=== PATIENT | female | born 1955 | race Caucasian/White ===

== ENCOUNTER 2019-11-24 15:47 | Outpatient (CLI) | payer MEDICARE, SELFPAY ==
--- NOTE | 2019-11-24 15:58 | XR_ITS ---
WS: [id number] SCREENING DEXA SCAN [facility] CLINICAL INFORMATION: ASYMTOMATIC MENOPAUAL COMPARISON: None. FINDINGS: Left forearm bone mineral density 0.85 with a T score of -0.3 and Z score of 1.1 Left femoral neck bone mineral density measures 0.949 g/cm2. This corresponds to a T score of -0.5 an d Z score of 0.3. Right femoral neck bone mineral density measures 0.915 g/cm2. This corresponds to a T score -0.7of an d Z score of 0.0. Mean femoral neck bone mineral density measures 0.932 g/cm2. This corresponds to a T score of -0.6 an d Z score of 0.2. XR/XR DEXA axial skeleton* [id number] IMPRESSION: Normal bone mineralization. Patient's FRAX calculated 10 year probability for major osteoporotic fracture i s 16.1 % and osteoporotic hip fracture is 2.2%.
== END 2019-11-24 15:48 | disposition home or self-care (01) ==
PROVIDERS: Family Provider Family Medicine; Visit Provider Family Medicine
DX: Z78.0 Asymptomatic menopausal state (principal)
CPT/HCPCS: 77080

== ENCOUNTER → 2020-03-16 08:34 | Outpatient (BNVA) | payer MEDICARE, SELFPAY | PROVIDERS: Family Provider Family Medicine; Referring Provider Family Medicine; Visit Provider Anesthesiology Pain Medicine | DX: M54.42 Lumbago with sciatica, left side (principal); M47.816 Spondylosis without myelopathy or radiculopathy, lumbar region; M54.16 Radiculopathy, lumbar region; M54.9 Dorsalgia, unspecified; M62.830 Muscle spasm of back; Z98.890 Other specified postprocedural states; Z79.891 Long term (current) use of opiate analgesic | CPT/HCPCS: 99204 ==

== ENCOUNTER → 2020-03-27 14:25 | Outpatient (BNVA) | payer MEDICARE, SELFPAY | PROVIDERS: Family Provider Family Medicine; Visit Provider Anesthesiology Pain Medicine | DX: M54.16 Radiculopathy, lumbar region (principal); M54.9 Dorsalgia, unspecified | CPT/HCPCS: 64483; 64484; J1040; J2001; J3490 ==

== ENCOUNTER → 2020-04-13 13:14 | Outpatient (BNVA) | payer MEDICARE, SELFPAY | PROVIDERS: Family Provider Family Medicine; Visit Provider Anesthesiology Pain Medicine | DX: M54.16 Radiculopathy, lumbar region (principal); M54.9 Dorsalgia, unspecified | CPT/HCPCS: 64483; 64484; J1040; J3490 ==

== ENCOUNTER → 2020-04-27 08:48 | Outpatient (BNVA) | payer MEDICARE, SELFPAY | PROVIDERS: Family Provider Family Medicine; PCP Family Medicine; Visit Provider Anesthesiology Pain Medicine | DX: M47.816 Spondylosis without myelopathy or radiculopathy, lumbar region (principal); M54.16 Radiculopathy, lumbar region; M54.9 Dorsalgia, unspecified; M79.18 Myalgia, other site; Z98.890 Other specified postprocedural states | CPT/HCPCS: 20553; 99213; J1030; J3490 ==

== ENCOUNTER → 2020-05-25 09:17 | Outpatient (BNVA) | payer MEDICARE, SELFPAY | PROVIDERS: Family Provider Family Medicine; PCP Family Medicine; Visit Provider Anesthesiology Pain Medicine | DX: M47.816 Spondylosis without myelopathy or radiculopathy, lumbar region (principal); M54.16 Radiculopathy, lumbar region; M54.9 Dorsalgia, unspecified; M62.830 Muscle spasm of back; Z98.890 Other specified postprocedural states | CPT/HCPCS: 99213 ==

== ENCOUNTER → 2020-06-22 13:01 | Outpatient (BNVA) | payer MEDICARE, SELFPAY | PROVIDERS: Family Provider Family Medicine; PCP Family Medicine; Visit Provider Anesthesiology Pain Medicine | DX: M54.42 Lumbago with sciatica, left side (principal); M47.816 Spondylosis without myelopathy or radiculopathy, lumbar region; M54.16 Radiculopathy, lumbar region; M54.9 Dorsalgia, unspecified; M62.830 Muscle spasm of back; Z98.890 Other specified postprocedural states; Z79.891 Long term (current) use of opiate analgesic | CPT/HCPCS: 99213; 99214 ==

== ENCOUNTER 2020-07-19 15:08 | Outpatient (CLI) | payer MEDICARE, SELFPAY ==
--- NOTE | 2020-07-19 15:16 | MR_ITS ---
WS: [id number] MRI LUMBAR SPINE WITH AND WITHOUT CONTRAST HISTORY: increased radicular pain. Previous lumbar surgery COMPARISON: 11/07/2016 TECHNIQUE: Sagittal and axial multisequence imaging is submitted. Sagittal and axial T1 fat sat seque nces post-ProHance 17 cc IV. Disc and facet and osteoarthritis in the cervical spine causing encroachment upon the thecal sac from C3-4 through C6-7. LEFT paracentral disc protrusion at T4-5. Additional left-sided disc protrusion a t T6-7 and T7-8. Mild RIGHT convex curvature of the lumbar spine. L3 anterolisthesis by 3.2 mm. Posterior lumbar fusio n extends from L3 to L4. Mild disc desiccation throughout the lumbar spine. Conus terminates normally at L1-2 disc level. L1-L2: Normal. L2-L3: Mild annular disc bulging with a central broad-based shallow disc protrusion which is new sinc e the prior study. Disc protrusion extends into the inferior LEFT lateral recess slightly. There is m ild disc contact on the L2 and L3 nerve roots. Moderate LEFT foraminal stenosis. Mild central stenosi s is new. These findings are new. L3-L4: Large posterior laminectomy defect. No significant compression or disc protrusion on the theca l sac. Nerve roots are becoming slightly clumped within the thecal sac. L4-L5: Large posterior laminectomy defects with mild clumping of the nerve roots. Very mild encroachm ent upon the inferior lateral recesses by facet disease. Moderate bilateral foraminal narrowing. L5-S1: Diffuse osteophytic ridging and annular disc bulging. No central stenosis. Broad-based disc bu lging is encroaching upon the inferior lateral recess and the S1 nerve roots bilaterally. More focal RIGHT foraminal disc protrusion also abuts the RIGHT L5 nerve root. Similar findings to the prior benjamín dy. Moderate bilateral foraminal stenosis at L4-5 is unchanged. No evidence for discitis or osteomyelitis. MR/MR lumbar spine wo/w con [id number] IMPRESSION: 1. Status post L3-L5 posterior lumbar fusion with large laminectomy defects at L3-4 and L4-5. Resolution of the previously described central stenosis at L3-4 and L4-5. 2. New shallow disc protrusion at L2-3 with extension into the inferior LEFT l ateral recess with mild contact on the L2 and L3 nerve roots. Moderate LEFT for aminal stenosis due to combination of disc and facet disease at L2-3. 3. New mild central stenosis at L2-3 with progression of facet disease and flu id in the facet joints. 4. Moderate RIGHT foraminal stenosis at L5-S1 is unchanged. 5. There are additional multiple thoracic disc protrusions seen on the localiz er. If patient is symptomatic consider follow-up thoracic spine MRI to evaluate the disc protrusions.
[2020-07-19 16:14] LABS: Blood Urea Nitrogen 14 mg/dL (8-23)
== END 2020-07-19 15:09 | disposition home or self-care (01) ==
LOC: RADSHAW 15:13
PROVIDERS: PCP Family Medicine; Visit Provider Anesthesiology Pain Medicine
DX: M54.16 Radiculopathy, lumbar region (principal); Z98.890 Other specified postprocedural states; M96.1 Postlaminectomy syndrome, not elsewhere classified; M51.26 Other intervertebral disc displacement, lumbar region; M48.07 Spinal stenosis, lumbosacral region; M51.24 Other intervertebral disc displacement, thoracic region
CPT/HCPCS: 72158; 82565; 84520; A9579

== ENCOUNTER → 2020-07-20 10:49 | Outpatient (BNVA) | payer MEDICARE, SELFPAY | PROVIDERS: Family Provider Family Medicine; PCP Family Medicine; Visit Provider Anesthesiology Pain Medicine | DX: M47.816 Spondylosis without myelopathy or radiculopathy, lumbar region (principal); M54.16 Radiculopathy, lumbar region; M54.9 Dorsalgia, unspecified; M62.830 Muscle spasm of back; M79.605 Pain in left leg; G03.9 Meningitis, unspecified; Z98.890 Other specified postprocedural states; Z79.891 Long term (current) use of opiate analgesic | CPT/HCPCS: 99214; 99215 ==

== ENCOUNTER → 2020-07-24 13:39 | Outpatient (BNVA) | payer MEDICARE, SELFPAY | PROVIDERS: Family Provider Family Medicine; PCP Family Medicine; Visit Provider Anesthesiology Pain Medicine | DX: M54.16 Radiculopathy, lumbar region (principal); M54.9 Dorsalgia, unspecified; Z79.891 Long term (current) use of opiate analgesic | CPT/HCPCS: 64483; J1100; J3490 ==

== ENCOUNTER → 2020-08-07 09:30 | Outpatient (BNVA) | payer MEDICARE, SELFPAY | PROVIDERS: Family Provider Family Medicine; PCP Family Medicine; Visit Provider Anesthesiology Pain Medicine | DX: M54.16 Radiculopathy, lumbar region (principal); M47.816 Spondylosis without myelopathy or radiculopathy, lumbar region; M54.9 Dorsalgia, unspecified; M62.830 Muscle spasm of back; G03.9 Meningitis, unspecified; Z98.890 Other specified postprocedural states; Z79.891 Long term (current) use of opiate analgesic | CPT/HCPCS: 99213 ==

== ENCOUNTER → 2020-09-04 09:42 | Outpatient (BNVA) | payer MEDICARE, SELFPAY | PROVIDERS: Family Provider Family Medicine; PCP Family Medicine; Visit Provider Anesthesiology Pain Medicine | DX: M54.42 Lumbago with sciatica, left side (principal); M54.16 Radiculopathy, lumbar region; M47.816 Spondylosis without myelopathy or radiculopathy, lumbar region; M48.062 Spinal stenosis, lumbar region with neurogenic claudication; M54.9 Dorsalgia, unspecified; M62.830 Muscle spasm of back; G03.9 Meningitis, unspecified; Z98.890 Other specified postprocedural states; Z79.891 Long term (current) use of opiate analgesic | CPT/HCPCS: 99214 ==

== ENCOUNTER → 2020-10-12 10:42 | Outpatient (BNVA) | payer MEDICARE, SELFPAY | PROVIDERS: Family Provider Family Medicine; PCP Family Medicine; Visit Provider Orthopaedic Surgery | DX: M54.16 Radiculopathy, lumbar region (principal); Z98.1 Arthrodesis status | CPT/HCPCS: 72114 ==

== ENCOUNTER 2020-11-14 15:07 | Inpatient (IN) | payer MEDICARE, SELFPAY ==
[2020-11-08 10:48] VITALS: BMI 29.9
--- NOTE | 2020-11-08 11:13 | P.ANESASSM_ITS ---
Pre-Anesthetic Assessment Pre-Anesthetic Assessment: Height/Weight: Height 1.65 m Weight 81.647 kg Preop Diagnosis: back pain Proposed Procedure: Operation Date: 11/14/20 07:00 Proposed Procedures p T10 ? Pelvis PSF with instability L2/3 PLIF and L5/S1 PLIF 73176, 93124, 16281, 59994, 53030, 82200, 57883,80048, 17949, 78622, 74469, 32925, 49338 (x7) M48.061(Not Applicable) - Leno Rasheed DO Familial anesthetic complications: None Social: Social History: No alcohol and No tobacco Exam: Pre-Anes Outpt Exam: alert, oriented x 3, clear to auscultation bilaterally and regular rate & rhythm Airway: Cervical ROM: WNL MP: 4 Dentition: Full Additional comments: small mouth opening, large neck circumference Pulmonary: Pulmonary: Asthma (has inhaler - not used in 8 or 9 months) Musc/skel: Musc/skel: Lower Back Pain Anesthetic Plan: ASA status: 2 Anesthesia: General Risk of > 500 ml blood loss (7ml/kg in children): No PFSH Anesthesia PFSH: Medical History (Updated 10/12/20 @ 11:14 by Leno Rasheed DO) 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
[2020-11-08 11:33] LABS: Hematocrit 45.4 % (37.0-47.0); Hemoglobin 14.9 g/dL (11.5-15.3); Mean Corpuscular HGB Conc 32.8 g/dL (30.0-36.0); Mean Corpuscular Hemoglobin 28.9 pg (28.0-34.0); Mean Corpuscular Volume 88.2 fL (81-99); Mean Platelet Volume 9.3 fL (7.4-10.4); Platelet Count 285 10^3/cmm (130-400); Red Blood Count 5.15 10^6/uL (4.1-5.3); Red Cell Distribution Width 12.3 % (12.1-15.1); White Blood Count 9.5 10^3/uL (4.0-10.0)
[2020-11-08 11:48] LABS: Anion Gap 10.7 (5-19); Blood Urea Nitrogen 12 mg/dL (8-23); Carbon Dioxide 33 mmol/L (22-29); Chloride 100 mmol/L (98-107); Glomerular Filtration Rate 123.4 mL/min (90-130); Glucose 87 mg/dL (65-115); Osmolality Calculated 289 mOsm/kg (285-295); Potassium 3.7 mmol/L (3.5-5.1); Sodium 140 mmol/L (136-145)
[2020-11-08 11:50] LABS: Absolute Eosinophils 0.2 10^3/cmm (0.0-0.7); Absolute Neutrophil 6.4 10^3/cmm (1.4-6.5); Absolute Segmented Neutrophil 6.4 10/cmm (1.6-7.1); Eosinophils 3 %; Lymphocytes 24 %; Monocytes Absolute 0.6 10^3/cmm (0.1-0.6); Platelet Estimate Normal (Normal); Segmented Neutrophils 67 %; Total Cells Counted 100 (0-100)
[2020-11-14] VITALS (34 sets, daily range): BP systolic 76–156; BP diastolic 52–86; PULSE 71–106; RESP 14–24; TEMP 35.9–37.3; O2SAT 95–100
--- NOTE | 2020-11-14 | SCC_ITS ---
Procedure Done: 1. T10 - S1 - Pelvis Instrumentation 2. T10 - S1 -Pelvis fusion 3. L5/S1 Interbody fusion with postrolateral fusion 4. L5/S1 interbody cage 5. L2/3 Interbody fusion with posterolateral fusion 6. L2/3 interbody cage 7. bone marrow aspirate through separate incision of the fascia from the right iliac crest 8. use of allograft 9. use of autograft 10. Removal of deep hardware from the spine 35 seconds of fluoroscopic guidance, for a cumulative dose of 137.9 mGy, was provided to Dr. Rasheed by the radiology department. C-arm images of the lumbar spine were saved for the patient's permanent record. [facility]
--- NOTE | 2020-11-14 06:42 | W.PM.OPSUD ---
Surgery/Procedure H&P Update DATE OF PROCEDURE: November 14, 2020 DATE H&P PERFORMED: 11/14/20 H&P UPDATE INFORMATION: I have reviewed H&P completed within last 30 days, I have examined patient prior to procedure and No changes to prior documentation PREOP DIAGNOSIS: Lumbar stenosis , degenerative scoliosis PLANNED PROCEDURE: Operation Date: 11/14/20 07:30 Proposed Procedures p T10 ? Pelvis PSF with instability L2/3 PLIF and L5/S1 PLIF 49144, 10671, 50692, 55571, 71923, 46072, 05636,73101, 55435, 53771, 08003, 27013, 14726 (x7) M48.061(Not Applicable) - Leno Rasheed, DO
--- NOTE | 2020-11-14 06:43 | P.HP_ITS ---
Providers/Chief Complaint Primary Care Provider: Jan Haro Chief Complaint: T10 ? Pelvis PSF with instability L2/3 PLIF and L5 History of Present Illness Meghan Maldonado is a 65 year old female Details: New 65 year old female here for evaluation of back pain. Chief Complaint: low back pain Onset: 2018 Duration: years Characteristics:sharp stabbing Severity: 10 Location: left side low back pain Radiating symptoms:back left lower extremity from hip to knee Aggravating factors: anything Alleviating factors: rest Neuro deficits: denies numbness, tingling, weakness, incontinence of bowel/bladder, saddle anesthesia. Prior tx: laminectomy done [address] Akhtar in [place], injections done by Dr. Matute lasting one week. Review of Systems ENMT: Denies: enlarged tonsils Medications/Allergies Home Medications Medication Instructions Recorded Confirmed Last Taken Type hydrochlorothiazide 25 mg tablet 25 mg PO DAILY 03/16/20 11/14/20 11/14/20 05:00 History ibuprofen 200 mg capsule 200 mg PO Q6H PRN 03/16/20 11/08/20 Unknown History losartan 25 mg tablet 25 mg PO DAILY 03/16/20 11/14/20 11/14/20 05:00 History naproxen sodium 220 mg capsule 220 mg PO Q8H PRN 07/20/20 11/08/20 Unknown History baclofen 10 mg tablet 10 mg PO BID #60 tab 09/04/20 11/14/20 1 Day Ago Rx ~11/13/20 gabapentin 300 mg capsule 300 mg PO TID #90 cap 09/04/20 11/14/20 11/14/20 05:00 Rx Allergies Allergy/AdvReac Type Severity Reaction Status Date / Time amlodipine Allergy Unknown Verified 11/08/20 10:46 hydrocodone Allergy ADR-Itching Verified 11/08/20 10:46 PFSH Acute PFSH: Medical History (Updated 10/12/20 @ 11:14 by Leno Rasheed DO) 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 contract 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 Surgical History (Updated 10/12/20 @ 11:14 by Leno Rasheed DO) H/O arthroscopic knee surgery History of back surgery History of lumpectomy of right breast Family History Other CAD (coronary artery disease) Cancer Diabetes Social History Smoking and tobacco status: never smoked Alcohol intake: current Alcohol intake frequency: few times a month Alcohol type: wine Lives independently: Yes History of recent travel: No (RONALD) Additional social history: TRAVELED TO [place] 3 MONTHS AGO Vitals/I&O/Wt Last Vital Signs Temp 96.7 F L 11/14/20 06:12 Pulse 71 11/14/20 06:12 Resp 18 11/14/20 06:12 BP 156/86 11/14/20 06:12 Pulse Ox 96 11/14/20 06:12 Physical Exam Narrative: EXAM NARRATIVE: EXAM NARRATIVE: CONSTITUTIONAL: The patient is normal appearing, well groomed, cooperative and in no apparent distress. GENERAL: Patient in no acute distress. Well nourished. CARDIAC: Regular rate and rhythm. CHEST: Normal inspiratory effort, normal respiratory rate. ABDOMEN: Soft and non-tender. SKIN: Clear, warm and intact. NEURO?PSYCH: The patient is alert and oriented to person, place and time. NEUROVASCULAR: Upper Extremity Sensory - SILT. Motor Strength: Shoulder abduction C5: 5/5; Wrist extension C6: 5/5; Elbow extension C7: 5/5; Hand Film Processing Supervisor C8: 5/5; Finger abduction T1: 5/5. Radial/ Ulnar/ Median in intact Lower Extremity Sensory - SILT. Motor Strength: Hip flexion L2/3; Ant/inner thig h: 5/5; Hip adduction L2/3: 5/5; Knee extension L4 Lat thigh: 5/5; Toe dorsiflexion L5: 5/5; Ankle dorsiflexion L5/ S1: 5/5; Plantar flexion S1: 5/5. DTR: Triceps 2+; Brachioradialis 2+; Patellar 2+; Achilles 2+. MUSCULOSKELETAL: UPPER EXTREMITIES: The patient had full active ROM in fingers, wrist, elbow, and shoulder. The patient demonstrated ability to fully flex/extend/abduct/adduct fingers, make ok sign, cross 2nd/3rd digits, extend 1st digit fully.. Radial pulse 2+, CR<2 seconds. LOWER EXTREMITIES: Pt has full, active ROM of toes, ankle, knee, and hip. Dorsalis pedis & posterior tibialis pulses 2+, CR<2 seconds. SPINE: Skin warm, dry, intact. 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
--- NOTE | 2020-11-14 06:45 | P.ANESUD_ITS ---
Pre-Anesthetic Update Pre-Anesthetic Assessment: Date of Surgery/Procedure: 11/14/20 Preop Peyton gnosis: Lumbar stenosis , degenerative scoliosis Proposed Procedure: Operation Date: 11/14/20 07:30 Proposed Procedures p T10 ? Pelvis PSF with instability L2/3 PLIF and L5/S1 PLIF 22404, 81437, 14167, 23960, 32049, 08900, 66188,68471, 99295, 46535, 36219, 00301, 89854 (x7) M48.061(Not Applicable) - Leno Rasheed, DO Any changes to Pre-Anesthetic Assessment?: No Last Intake: Intake Last Liquid Date 11/13/20 Last Liquid Time 20:00 Last Solid Date 11/13/20 Last Solid Time 20:00 Vitals: Temperature 96.7 F L 11/14/20 06:12 Temperature Source Temporal Artery S can 11/14/20 06:12 Pulse Rate 71 11/14/20 06:12 Pulse Rhythm 11/14/20 06:31 Pulse Strength 3+ Normal 11/14/20 06:31 Respiratory Rate 18 11/14/20 06:12 Blood Pressure 156/86 11/14/20 06:12 Blood Pressure Meagan n 109 11/14/20 06:12 Pulse Oximetry 96 11/14/20 06:12 Oxygen Delivery Me thod 11/14/20 06:31 Exam: Pre-Anes Outpt Exam: alert, oriented x 3, clear to auscultation bilaterally and regular rate & rhythm Other Pertinent Information: Other Pertinent Information: Warmer, A.line Cardiac Studies: No Data to Display
[2020-11-14] MEDS: sodium chloride 0.9% 1,000 ML 30 ML IV (06:47)
[2020-11-14 07:00] LABS: Basophils # 0.1 10^3/uL (0.0-0.1); Basophils % 1.3 %; Eosinophils # 0.2 10^3/uL (0.0-0.8); Eosinophils % 3.6 %; Hematocrit 41.9 % (37.0-47.0); Hemoglobin 13.9 g/dL (11.5-15.3); Lymphocytes # 1.8 10^3/uL (0.8-4.8); Lymphocytes % 28.8 %; Mean Corpuscular HGB Conc 33.2 g/dL (30.0-36.0); Mean Corpuscular Hemoglobin 29.3 pg (28.0-34.0); Mean Corpuscular Volume 88.2 fL (81-99); Mean Platelet Volume 9.4 fL (7.4-10.4); Monocytes # 0.7 10^3/uL (0.2-0.9); Monocytes % 11.7 %; Neutrophils # 3.31 10^3/uL (1.8-7.7); Neutrophils % 53.9 %; Nucleated Red Blood Cells % 0 %; Platelet Count 267 10^3/cmm (130-400); Red Blood Count 4.75 10^6/uL (4.1-5.3); Red Cell Distribution Width 12.2 % (12.1-15.1); White Blood Count 6.1 10^3/uL (4.0-10.0)
[2020-11-14 07:16] LABS: Alanine Aminotransferase 15 U/L (0-33); Albumin Level 3.8 g/dL (3.5-5.2); Alkaline Phosphatase 96 IU/L (35-105); Anion Gap 10.5 (5-19); Aspartate Amino Transferase 17 U/L (0-32); Blood Urea Nitrogen 11 mg/dL (8-23); Calcium 9.7 mg/dL (8.5-10.5); Carbon Dioxide 29 mmol/L (22-29); Chloride 101 mmol/L (98-107); Globulin 2.9 g/dL (1.3-4.6); Glomerular Filtration Rate 123.4 mL/min (90-130); Glucose 95 mg/dL (65-115); Osmolality Calculated 283 mOsm/kg (285-295); Potassium 3.5 mmol/L (3.5-5.1); Sodium 137 mmol/L (136-145); Total Bilirubin 0.6 mg/dL (0.15-1.2); Total Protein 6.7 g/dL (6.6-8.7)
--- NOTE | 2020-11-14 09:18 | ANES.PROC ---
Anesthesia Procedures Procedure/Date: 11/14/20 Arterial Line: Time Out Performed: Yes Consent: requested by attending/covering physician, from patient, risks and benefits reviewed and patient agrees to proceed Size (Gauge): 20 Technique Used: guide wire technique Post-Procedure: dry sterile dressing placed Patient Tolerated Procedure: well Complications: none Site: right and radial
[2020-11-14] MEDS: vancomycin 1,000 MG SDV 1000 MG XX (10:04)
[2020-11-14] MEDS: heparin, porcine 1,000 unit/mL INJ 10 mL 10000 UNIT IRRIGATION (10:05)
--- NOTE | 2020-11-14 11:27 | SUR.OPER ---
Family Notified Of Patient's Status Via Phone.
[2020-11-14 13:43] LABS: ABG PCO2 35.5 mmHg (35-45); ABG PH Result 7.44 (7.35-7.45); Arterial Blood Gas Hematocrit 28.1 % (37-47); Base Excess ABG -0.2 mmol/L (-2.0-2.0); Blood Gas Sample Site Brachial, right; Blood Gas Sample Type Arterial; Carboxyhemoglobin 0.9 %THgb (0.4-20.1); HCO3 ABG 23.8 mmol/L (22-26); Ionized Calcium Level - ABG 1.1 mmol/L (1.1-1.4); Methemoglobin 1.1 % (0.4-1.5); Oxygen Saturation ABG > 100.0; Potassium Level - ABG 3.1 mmol/L (3.5-5.0); Total Hemoglobin 9.2 g/dL (12-16)
[2020-11-14 13:46] LABS: Alveolar-Arterial Oxygen Gradi 5.5 mmHg (5-10); Oxygen Device BIPAP
--- NOTE | 2020-11-14 15:18 | PM.OP ---
Operative Report Date of procedure: November 14, 2020 Pre-op Diagnosis: Lumbar stenosis , degenerative scoliosis Post-op diagnosis: same Procedure Done: 1. T10 - S1 - Pelvis Instrumentation 2. T10 - S1 -Pelvis fusion 3. L5/S1 Interbody fusion with postrolateral fusion 4. L5/S1 interbody cage 5. L2/3 Interbody fusion with posterolateral fusion 6. L2/3 interbody cage 7. bone marrow aspirate through separate incision of the fascia from the right iliac crest 8. use of allograft 9. use of autograft 10. Removal of deep hardware from the spine Surgeon: Leno Rasheed Anesthesia: General Estimated blood loss (mL): 1,100 Condition: stable Disposition: PACU Procedure: 1. T10 - S1 - Pelvis Instrumentation 2. T10 - S1 -Pelvis fusion (Lumbopelvic fixation) 3. L5/S1 Interbody fusion with postrolateral fusion 4. L5/S1 interbody cage 5. L2/3 Interbody fusion with posterolateral fusion 6. L2/3 interbody cage 7. bone marrow aspirate through separate incision of the fascia from the right iliac crest 8. use of allograft 9. use of autograft 10. Removal of deep hardware from the spine Patient is brought to the operative suite. After undergoing anesthesia, the patient had neuro monitoring attached. Patient was then placed in the prone position on the Willie table. All areas of impingement were well-padded. Patient was then prepped and draped in the normal sterile fashion. Skin incision was then made over the T10 - S2 level. Subperiosteal dissection was made out to the transverse processes of T10 - S1 out over the sacral ala. Once the exposure was complete attention was then brought to removing the previous pedicle screws. Patient's previous hardware was identified it was placed from L3-L5. The screws were exposed completely and the end caps were removed from the pedicle screws. And then the cross-link screws were removed. The cross-link was removed. The rods were removed bilaterally. And then the pedicle screws were backed out and removed. The tissue around the pedicle screws was then removed. The screws were then replaced with [place] screws. These were six 5 x 50 pedicle screws. These were used in order to connect onto the construct that was going to be placed. Prior to placing the pedicle screws the [employer] bone marrow aspirate kit was used to aspirate bone marrow aspirate. An incision was made through the fascia of the Right iliac crest This was done by using the sharp probe to open up the bone. Aspiration was performed and then the blunt probe was then used to dissect down to through the bone tunnel. An aspirating well drawn back a millimeter approximately 20 cc of bone marrow aspirate was used. And mixed with the allograft and autograft bone that will be used. Navigation was used to place the pedicle Screws. The technique for placing the pedicle screws was to use a drill followed by the gearshift probe. Followed by the ball probe to feel the superior inferior medial lateral gonzales of the pedicles. Then placement of the screws. Was done at each pedicle. Screws were placed at T10 bilaterally and S1. Sacral Ala iliac screws were then placed. Starting point was made in the sacrum passed through the ala and then into the column in the iliac crest. This was guided with navigation. Gearshift was removed and ball probe was passed to ensure that there is no breaches. And then a 90 x 9 5 screw was inserted. This process was done on both the right and the left side of the iliac crest. Next attention was brought to performing the laminectomy of L5. This was done using the high-speed bur Kerrisons and curettes. Once the lamina was removed and then attention was brought to performing a partial facetectomy on the contralateral side. This was done again using the high-speed bur curettes and Kerrisons. The ligamentum flavum was taken down bilaterally from L5 to S1. Attention was then brought to the facet on the ipsilateral side. The facet was taken down. The S1 nerve was decompressed as it passed around the S1 pedicle. The laminectomy was done for purposes of decompressing the nerve as well as placement of the cage. The L5 nerve was identified as it traversed through the L5/S1 Foramen foramen. The thecal sac was identified and retracted. The L5/s1 disc Spacee was identified. Using a knife the disc base was opened. And then sequential sharmila were placed. The first shaver was a 6 and the last shaver was a 11. Using a pituitary and down going curette the endplates were scraped and disc material was removed from the space. Once adequate decompression of the disc base was felt to be had. Osteoamp sponge was packed into the anterior aspect of the disc base. Then a size 11 cage from [place] was placed after packing osteoamp into the cage. While placing the cage the thecal sac and S1 nerve was protected. C arm was used to ensure that the cages placed in the appropriate position. Next attention was brought to performing the laminectomy of L2. This was done using the high-speed bur Kerrisons and curettes. Once the lamina was removed and then attention was brought to performing a partial facetectomy on the contralateral side. This was done again using the high-speed bur curettes and Kerrisons. The ligamentum flavum was taken down bilaterally from L2 to L3. Attention was then brought to the facet on the ipsilateral side. The facet was taken down. The L3 nerve was decompressed as it passed around the L3 pedicle. The laminectomy was done for purposes of decompressing the nerve as well as placement of the cage. The L2 nerve was identified as it traversed through the L2/3 Foramen foramen. The thecal sac was identified and retracted. The L2/3 disc Spacee was identified. Using a knife the disc base was opened. And then sequential sharmila were placed. The first shaver was a 6 and the last shaver was a 7. Using a pituitary and down going curette the endplates were scraped and disc material was removed from the space. Once adequate decompression of the disc base was felt to be had. Osteoamp sponge was packed into the anterior aspect of the disc base. Then a size 7 cage from Ingrid was placed after packing osteoamp into the cage. While placing the cage the thecal sac and S1 nerve was protected. C arm was used to ensure that the cages placed in the appropriate position. Attention was then brought to attaching the rods to the screws placed in the [id number] bilaterally. Caps were torqued into position. Locking the construct in place. Wound was copiously irrigated and then attention was brought to decorticating the facets and transverse processes laterallyFrom T10 to the sacral ala. Bone that was taken down from the lamina was used along with osteoamp fibers and sponges were packed into the lateral gutters along the facet joints. This was done bilaterally. Wound was then closed in a layered fashion starting with the thoracolumbar fascia. 0-stratafix was used the sub cutaneous tissue was closed with 2-0 stratafix and skin with 4-0 stratafix. Glue was then used to seal the skin and a steril dressing was applied. Patient was then placed in the supine position. The endotracheal tube was removed and patient was transferred to the PACU in stable condition.
--- NOTE | 2020-11-14 15:46 | ANE.PACU2 ---
Inpatient post-anesthesia follow up: Airway intact: Yes Vital signs: Temperature 99.2 F Pulse Rate 100 Respiratory Rate 17 Blood Pressure 100/62 Pulse Oximetry 100 Oxygen Delivery Me thod Nasal Cannula Oxygen Flow Rate 3 Fraction of Inspir ed Oxygen Hydration adequate: No Nausea and vomiting: No Pain level: 3 Additional Comments: Sedated, slightly dehydrated.
[2020-11-14 15:50] LABS: Hematocrit 22.2 % (37.0-47.0); Hemoglobin 7.1 g/dL (11.5-15.3)
[2020-11-14] MEDS: fentaNYL 50 mcg/mL INJ 2mL IVP (15:54)
--- NOTE | 2020-11-14 16:04 | SUR.PHASEI ---
1505 PT TO PACU AWAKES TO VOICE BUT QUICKLY BACK TO SLEEP PT HAS SOME EDEMA TO FACE BUT IS RESOLVING PER PEDIATRIC PHYSICIAN AFTER PT POSITIONED ON BACK PT HAS ABD BINDER IN PLACE WITH FRANCISCO JAVIER DRAIN WITH RED DRAINAGE 110 ML EMPTIED, PT HAS DANIELS CATHETER TO DD WITH STATLOCK IN PLACE YELLOW URINE NOTED TO TUBING AND BAG, BILAT SCD ON, 1550 BP HOLDING AT 90 SYSTOLIC AND BETTER PT OK TO GO TO FLOOR , H&H DRAWN FROM ART LINE BY DR PERRY, AND LINE FLUSHED AND THEN PULLED BY RN PRESSURE HELD TO RT WRIST X 10 MINUTES AND PRESSURE DRESSING TO SITE. IV PATENT WITH NS AT FAST RATE PER DR YEIMI RODGERS, PT TO RECIEVE THE REST OF THE NS LITER IN PACU, PT C/O OF PAIN TO BACK AT 8 SEE PAIN MED GIVEN 1619 PT RESTING QUIETLY BP 100/81 PT RESP EVEN AND UNLABORED PT LUNGS CLEAR, PT TAKING OCC ICE CHIPS VSS FRANCISCO JAVIER COMPRESSED, DR WINTERS AT [facility] AND HAS TALKED TO PT S/O PER PHONE. NOW RN CALLING REPORT.
[2020-11-14] MEDS: sodium chloride 0.9% 1,000 ML 150 ML IV (16:05)
--- NOTE | 2020-11-14 17:11 | PC.NURSE ---
8270 OR NOTE REPORT REC'D FROM ZANA GASTELUM - PT BROUGHT TO FLOOR PER ZANA ARMSTRONG - SEE ADMISSION ASSESSMENT FOR DETAILS - ABD BINDER IN PLACE - PT ABLE TO MOVE ALL EXTERMITIES - AT SIDE
--- NOTE | 2020-11-14 17:17 | PC.NURSE ---
DR SINGH WINTERS NOTIFIED OF BLOOD PRESSURE AND HEMOGLOBIN - ORDERED TO CALL RESULTS TO DR GOODSON
--- NOTE | 2020-11-14 17:27 | PC.NURSE ---
DR KELLEE GOODSON UPDATED PER DR WINTERS REQUEST OF BP AND H&H - DR TO COME TO SEE PT
--- NOTE | 2020-11-14 17:41 | PC.NURSE ---
BLOOD PRESSURE DR GOODSON NOTIFIED OF BP OF 85/56
--- NOTE | 2020-11-14 17:50 | PC.NURSE ---
DR KELLEE GOODSON IN ROOM - DISCUSSING PLAN OF CARE WITH PT AND - AWAITING ICU BED
--- NOTE | 2020-11-14 17:52 | PC.NURSE ---
IVF BOLUS STARTED PER DR GOODSON
--- NOTE | 2020-11-14 18:10 | PM.CONSULT ---
Providers/Reason For Consult Consulting Physican/Specialty*: Internal Medicine Reason for Consult*: medical management Requesting Physcian: Dr. Rasheed Attending Physician: Leno Rasheed DO Primary Care Provider: Jan Haro History of Present Illness History of Present Illness Meghan Maldonado is a 65 year old female admitted for T10 to pelvis PSF with instability L2/3 PLIF and L5. She is status post this procedure today. She had an estimated blood loss of 1100 cc. Initially she was stable postoperatively. However she now feels poorly and blood pressure is approximately 70-80 systolic. Review of Systems General: Reports: ROS unobtainable due to medical condition Narrative: Brief review of systems prior to transfer to I see you is negative for chest pain or shortness of breath no nausea. Meds/Allergies Home Medications and Allergies Home Medications Medication Instructions Recorded Confirmed Last Taken Type hydrochlorothiazide 25 mg tablet 25 mg PO DAILY 03/16/20 11/14/20 11/14/20 05:00 History ibuprofen 200 mg capsule 200 mg PO Q6H PRN 03/16/20 11/08/20 Unknown History losartan 25 mg tablet 25 mg PO DAILY 03/16/20 11/14/20 11/14/20 05:00 History naproxen sodium 220 mg capsule 220 mg PO Q8H PRN 07/20/20 11/08/20 Unknown History baclofen 10 mg tablet 10 mg PO BID #60 tab 09/04/20 11/14/20 1 Day Ago Rx ~11/13/20 gabapentin 300 mg capsule 300 mg PO TID #90 cap 09/04/20 11/14/20 11/14/20 05:00 Rx Allergies Allergy/AdvReac Type Severity Reaction Status Date / Time amlodipine Allergy Unknown Verified 11/08/20 10:46 hydrocodone Allergy ADR-Itching Verified 11/08/20 10:46 PFSH Acute PFSH: 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 Pain management contract signed Surgical History H/O arthroscopic knee surgery History of back surgery History of lumpectomy of right breast Family History Other CAD (coronary artery disease) Cancer Diabetes Social History Smoking and tobacco status: never smoked Alcohol intake: current Alcohol intake frequency: few times a month Alcohol type: wine Lives independently: Yes History of recent travel: No ([place]) Additional social history: TRAVELED TO [place] 3 MONTHS AGO Vitals/I&O/Wt Last Vital Signs Temp 97.6 F 11/14/20 17:35 Pulse 93 11/14/20 18:00 Resp 18 11/14/20 18:00 BP 87/52 11/14/20 18:00 Pulse Ox 100 11/14/20 18:00 11/14/20 11/14/20 11/14/20 06:59 14:59 22:59 Intake Total 1100 / 1100 500 / 1600 Output Total 1480 / 1480 Balance 1100 / 1100 -980 / 120 Physical Exam Narrative: EXAM NARRATIVE: General. Patient is lying flat she is obese. She appears in mild distress. She is shaking. She is pale white. Head: normocephalic atraumatic Eyes: pupils round reactive to light and accommodation extraocular muscles are intact ENT :no sinus drainage mucous membranes are pale Heart:rateregular normal S1-S2 no obvious murmur click gallop or rub Lungs: Clear to auscultation anteriorly. Abdomen soft nontender nondistended positive bowel sounds obese Extremities no clubbing cyanosis or edema. SCDs are in place. Back/pelvis: Status post surgery did not remove dressing. Psych appropriate for acute illness. Skin no rashes or lesions noted. Urinary Catheter Management^: F: Cath Placed During This Visit: yes Urinary Catheter Date of Insertion: 11/14/20 Urinary Catheter Time of Insertion: 09:00 A&P Assessment and plan (1) Hypotension after procedure: Transfer to Unit. Dr. Rasheed made aware. start norepi in ICU. For now fluids wide open, type and cross and transfuse 2 u PRBC's. Status: Acute (2) Acute blood loss anemia: Transfuse 2 u PRBC's Status: Acute (3) HTN (hypertension), benign: home meds of HCTZ and losartan on hold Status: Acute Consult Attestations Medical Necessity Statement: hypotension due to blood loss Procedures Arterial Line Size (Gauge): 20 Coding Level of Care Code Acute Medical Technicians for g Fwd Diagnoses Hypotension after procedure I95.81 Acute blood loss anemia D62 HTN (hypertension), benign I10
[2020-11-14] MEDS: lactated ringers 1,000 ML 90 ML IV (18:28)
--- NOTE | 2020-11-14 18:43 | PC.NURSE ---
BLOOD PRESSURE PATIENT REPOSITIONED - CURRENT BLOOD PRESSURE OF 81/50 - PT RATING BACK PAIN 04/30 - BOTH PATIENT AND EDUCATED TO INABILITY TO GIVE PAIN MEDS AT THIS TIME
--- NOTE | 2020-11-14 19:15 | PC.NURSE ---
PM SHIFT REPORT REPORT GIVEN TO ZANA NORWOOD
--- NOTE | 2020-11-14 19:27 | PC.NURSE ---
ICU MULTIPLE ATTEMPTS TO CALL REPORT TO ICU FOR TRANSFER - BED NOT AVAILABLE - BOTH DAY SHIFT AND SOFTWARE DEVELOPMENT TEST ENGINEER CHARGE NURSE AWARE
[2020-11-14] MEDS: sodium chloride 0.9% (100 ml) 100 ML 125 ML (20:19)
[2020-11-14] MEDS: gabapentin 300 mg Capsule PO (20:36)
[2020-11-14] MEDS: baclofen 10 mg Tablet PO (20:36)
[2020-11-14] MEDS: docusate sodium 100 mg Capsule PO (20:37)
[2020-11-14] MEDS: HYDROcodone-acetaminophen 5-325 mg Tablet PO (22:56)
[2020-11-15] VITALS (20 sets, daily range): BP systolic 83–133; BP diastolic 40–79; PULSE 95–120; RESP 16–19; TEMP 36.7–37.4; O2SAT 95–99
--- NOTE | 2020-11-15 | XR_ITS ---
WS: [id number] Exam: XR lumbar spine 2-3V* [id number] Date/Time of Exam: 11/15/2020 12:00 AM Reason For Exam: OR PICS AP and lateral views of the lower thoracic and lumbar spine are submitted for evaluation. There is operative fusion of the spine from T10 to S1 with pedicle screws and posterior rods. Laminec heydi defect noted from L3 to S1. Screws bridge the sacroiliac joints. There are disc spacers at L2-3 and L5-S1. No sign of the hardware failure. XR/XR lumbar spine 2-3V* [id number] IMPRESSION: 1. Operative fusion of the spine from T10 to S1 with pedicle screws and posteri or rods. Decompression laminectomy from L3 to S1. The spine is stabilized in th e satisfactory alignment.
[2020-11-15] MEDS: sodium chloride 0.9% (100 ml) 100 ML 125 ML (00:55)
[2020-11-15] MEDS: lactated ringers 1,000 ML 90 ML IV (05:48)
[2020-11-15 06:48] LABS: Basophils % 0.2 %; Eosinophils % 0.1 %; Lymphocytes # 1.4 10^3/uL (0.8-4.8); Lymphocytes % 9.5 %; Mean Corpuscular HGB Conc 33.5 g/dL (30.0-36.0); Mean Corpuscular Hemoglobin 28.8 pg (28.0-34.0); Mean Corpuscular Volume 85.9 fL (81-99); Mean Platelet Volume 9.8 fL (7.4-10.4); Monocytes # 1.5 10^3/uL (0.2-0.9); Monocytes % 10.1 %; Neutrophils # 11.64 10^3/uL (1.8-7.7); Neutrophils % 79.4 %; Nucleated Red Blood Cells % 0 %; Platelet Count 173 10^3/cmm (130-400); Red Blood Count 3.89 10^6/uL (4.1-5.3); Red Cell Distribution Width 14.1 % (12.1-15.1); White Blood Count 14.7 10^3/uL (4.0-10.0)
[2020-11-15 07:00] LABS: Hematocrit 33.4 % (37.0-47.0); Hemoglobin 11.2 g/dL (11.5-15.3)
[2020-11-15 07:05] LABS: Anion Gap 10.6 (5-19); Blood Urea Nitrogen 13 mg/dL (8-23); Calcium 7.8 mg/dL (8.5-10.5); Carbon Dioxide 24 mmol/L (22-29); Chloride 104 mmol/L (98-107); Glomerular Filtration Rate 123.4 mL/min (90-130); Glucose 118 mg/dL (65-115); Osmolality Calculated 281 mOsm/kg (285-295); Potassium 3.6 mmol/L (3.5-5.1); Sodium 135 mmol/L (136-145)
--- NOTE | 2020-11-15 08:47 | P.PN_ITS ---
Subjective Subjective: Interval history: Patient is going pain last night she feels better this morning. Vitals/I&O/Wt Last Vital Signs Temp 98.4 F 11/15/20 07:30 Pulse 101 H 11/15/20 07:30 Resp 16 11/15/20 07:30 BP 110/64 11/15/20 07:30 Pulse Ox 98 11/15/20 07:30 11/14/20 11/15/20 11/15/20 22:59 06:59 14:59 Intake Total 500 / 1600 2950 / 4550 Output Total 1880 / 1880 375 / 2255 Balance -1380 / -280 2575 / 2295 Physical Exam Narrative: EXAM NARRATIVE: Bilateral strength bilateral lower extremities sensation intact. Urinary Catheter Management^: F: Cath Placed During This Visit: yes Reason for Continuing Indwelling Catheter: Perioperative Use in Selected Surgeries Urinary Catheter Date of Insertion: 11/14/20 Urinary Catheter Time of Insertion: 09:00 Data : 11/15/20 06:24 11/15/20 06:24 A&P Assessment and plan (1) Spondylosis of lumbar spine: Postop day #1 from a T10 to pelvis fusion. Patient overall feels okay. Patient was given 2 units of red blood cells. Hemoglobin is significantly increased. At this point I will get her up with physical therapy. Rankin can be discharged if she gets up. Drain had approximate 125 out of it. Will likely DC drain tomorrow. Up with physical therapy today. Status: Acute Attestations Medical Necessity Statement*: Patient needs physical therapy and medical management she is postop day #1 from a 6-hour surgery. 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
[2020-11-15] MEDS: gabapentin 300 mg Capsule PO ×3 (09:00→19:59)
[2020-11-15] MEDS: baclofen 10 mg Tablet PO ×2 (09:00→17:56)
[2020-11-15] MEDS: docusate sodium 100 mg Capsule PO ×2 (09:00→17:56)
--- NOTE | 2020-11-15 10:33 | PC.NURSE ---
BLOOD PRESSURE BLOOD PRESSURE STABLE PER JEANNE HERNANDEZ WITH NO COMPLAINTS OF DIZZINESS - PT UP AND AMBULATED APPROX 70 FEET IN PAIGE TOLERATED WELL - RETURNED TO CHAIR BP 89/51 - NO COMPLAINTS AT PRESENT TIME - WITHIN 5 MINUTES BLOOD PRESSURE TO 103/61 - PT REMAINED IN CHAIR TO THIS POINT WITH ONLY COMPLAINTS OF PAIN - CALLED TO STAFF WITH COMPLAINTS OF DIZZINESS BP 89/34 - RETURNED TO BED WITH STAFF - PT IN SUPINE POSITION - LR BOLUS STARTED - DR RUFF INTO ROOM - BLOOD PRESSURE UP TO 116/72 WITHIN MINUTES - PT STATES SHES FEELING SLIGHTLY BETTER - AWARE OF NOTE AND WILL PLACE ORDERS
--- NOTE | 2020-11-15 10:55 | PC.NURSE ---
BLOOD PRESSURE PT RESTING IN BED BLOOD PRESSURE 104/46 - DR GOODSON TO PROCEED WITH ICU TRANSFER - CHARGE NURSE AND LICENSED OCCUPATIONAL THERAPIST AWARE
--- NOTE | 2020-11-15 11:01 | PC.CHAP ---
Pastoral Care Encounter/Spiritual Assessment Type of Contact [] Declined metal plater visit [] Patient/Family/Request visit [] Outpatient visit [] Follow-up visit [] Physician referral [] Code/Alert [x] Routine visit [] Staff referral [] Actively dying [] Patient sleeping [] Family support [] [] Out of room [] Palliative care [] [x] Receiving care in room [] Pre-surgical visit [] Trauma [] Long length of stay [] ICU visit [] Other: Relational/Emotional Strength [x] Patient feels connected with others/family/visitors/staff [] Distress [] Loneliness/isolation [] Abandonment Spirituality of Patient [x] Person of Patsy [] Attends Lutheran of their Patsy [x] Believes in Prayer [] Reads Bible or Presybeterian materials [] There are Spiritual issues to be addressed Balance Wheel Screw Hole Tapper Interventions [x] Prayer [x] Active listening [x] Non-anxious presence [x] Spiritual/emotional support [] Crisis/trauma care [x] Spiritual counseling [] Bereavement support [] Provided bereavement packet [] Provided Bible/devotional materials [] Provided toy/stuffed animal, coloring book to patient or family member [] Provided Communion [] Anointing/[place] [] Salvation [x] Completed spiritual assessment [] Other: Impact on Illness or Injury [] Angry [] Fearful [x] Anxious [] Often cries [] Exhaustion [] Unable to work [] Unable to attend judaism [] Unable to walk/stand [] Unable to read [] Unable to drive [] Unable to eat/drink [] Unable to sleep [] Unable to be with family [] Patient intubated [] Other: Summary Had surgery on pelvis had no pain, there be some rehab time, has a good attitude doesn't know when she will be able to go home Time spent with patient 10 mins
--- NOTE | 2020-11-15 11:09 | PM.PN ---
Subjective Subjective: Interval history: Patient was unable to be transferred to ICU yesterday due to no bed availability. She was given 2 units packed red blood cells with improvement she was fairly stable overnight with blood pressures around 100. Patient had just gotten up with physical therapy and was sitting in a chair. Her blood pressure dropped to systolic 80s. She began to get very dizzy and nauseated. She was placed back in bed lying flat. She is very uncomfortable due to pain and she is in mild distress with symptoms of hypotension. Vitals/I&O/Wt Last Vital Signs Temp 98.1 F 11/15/20 11:08 Pulse 109 H 11/15/20 11:08 Resp 18 11/15/20 11:08 BP 124/70 11/15/20 11:08 Pulse Ox 98 11/15/20 11:08 11/14/20 11/15/20 11/15/20 22:59 06:59 14:59 Intake Total 500 / 1600 3000 / 4600 Output Total 1880 / 1880 375 / 2255 180 / 180 Balance -1380 / -280 2625 / 2345 -180 / -180 Physical Exam Narrative: EXAM NARRATIVE: Patient is seen lying flat in bed. Her color is much better than yesterday however she has a mild sweat on forehead she is distraught appearing very concerned. Heart is regular mildly tachycardic. Lungs are clear to auscultation laterally. Abdomen soft nontender nondistended positive bowel sounds extremities no clubbing cyanosis or edema. Her drain has recently been emptied and had approximately 200 cc in it output documented at 330 and 170. Urinary Catheter Management^: F: Cath Placed During This Visit: yes Reason for Continuing Indwelling Catheter: Perioperative Use in Selected Surgeries Urinary Catheter Date of Insertion: 11/14/20 Urinary Catheter Time of Insertion: 09:00 Data : 11/15/20 06:24 11/15/20 06:24 A&P Assessment and plan (1) Hypotension after procedure: Patient remains hypotensive this morning unable to perform activities without symptoms. Patient will moved to ICU for the possibility of requiring pressors and if not significant fluid resuscitation that cannot be done on the floor. Status: Acute (2) Acute blood loss anemia: Patient received 2 units packed red blood cells last night her hemoglobin is 11.2. We will check again later today. Status: Acute (3) HTN (hypertension), benign: Holding home medications. Currently hypotensive as above. Status: Acute Attestations Medical Necessity Statement*: hypotension Procedures Arterial Line Size (Gauge): 20 Coding Level of Care Code Acute Electrolytic Etcher for Chg Fwd Diagnoses Hypotension after procedure I95.81 Acute blood loss anemia D62 HTN (hypertension), benign I10
[2020-11-15] MEDS: sodium chloride 0.9% 1,000 ML 100 ML IV ×2 (12:05→19:59)
[2020-11-15] MEDS: ketorolac 30 mg/mL INJ IVP (12:07)
--- NOTE | 2020-11-15 12:28 | PC.NURSE ---
BLOOD PRESSURE PT COMPLAINING OF PAIN IN HEMOVAC SITE - REQUESTING TO GET OUT OF BED TO SIDE OF BED - CURRENT BLOOD PRESSURE 133/85 - INSTRUCTED PT OF NEED TO REMAIN IN BED DUE TO INSTABILITIES OF PRESSURES - UNDERSTANDS - X2 STAFF SIT PT UP IN BED - BACK DRESSING ASSESSED - REMAINS C/D/I - HEMOVA SITE UNREMARKABLE - WITH READJUSTMENT BP AT 112/53 - REMAINS AT SIDE - TELE PLACED PER THIS NURSES JUDGEMENT - HEART RATE ST AT 114
--- NOTE | 2020-11-15 13:37 | PC.NURSE ---
DR KELLEE GOODSON ON FLOOR - PT UPDATE GIVEN
--- NOTE | 2020-11-15 14:02 | PM.EVENT ---
Event Note Event Note: Checked in with nurse. She reports blood pressure is around systolic 110. She has been as high as 130. However she still symptomatic orthostatic hypotension when she tries to sit up. I have been told there is no ICU beds. At this time she has stabilized. I do feel she needs more fluids. Therefore she was switched to normal saline which is normal tonic versus LR which is hypotonic. I have also instituted a replacement with normal saline one-to-one with drain output. We are keeping a close eye on her. Checked in with her she reports she has been
--- NOTE | 2020-11-15 14:38 | PC.NURSE ---
AWAITING TRANSFER PT REMAINS IN ROOM 267 WITH AT SIDE AWAITING TRANSFER TO ICU
--- NOTE | 2020-11-15 16:33 | PC.NURSE ---
PM SHIFT UPDATED DR HASTINGS OF BP OF 133/73 - ADDITIONAL 50 OUT OF HEMOVAC OF SEROSANG DRAINAGE - TOTAL OF 240 PER THIS SHIFT - URINE OUTPUT UP TO THIS POINT 800+ - ICU TRANSFER CANCELLED AT THIS TIME PER
[2020-11-15] MEDS: HYDROcodone-acetaminophen 5-325 mg Tablet PO (19:59)
[2020-11-16] VITALS (9 sets, daily range): BP systolic 115–145; BP diastolic 63–75; PULSE 95–104; RESP 17–23; TEMP 36.8–37.4; O2SAT 95–98
[2020-11-16] MEDS: HYDROcodone-acetaminophen 5-325 mg Tablet PO ×3 (05:04→20:51)
[2020-11-16] MEDS: sodium chloride 0.9% 1,000 ML 100 ML IV ×2 (06:28→17:53)
--- NOTE | 2020-11-16 07:14 | P.PN_ITS ---
Subjective Subjective: Interval history: pt doing well sitting in bed comfortably Vitals/I&O/Wt Last Vital Signs Temp 98.3 F 11/16/20 04:00 Pulse 96 11/16/20 04:00 Resp 19 H 11/16/20 04:00 BP 145/74 11/16/20 04:00 Pulse Ox 98 11/16/20 04:00 11/15/20 11/16/20 11/16/20 22:59 06:59 14:59 Intake Total 2030 / 2320 1240.000 / 3560.000 Output Total 830 / 1010 1805 / 2815 Balance 1200 / 1310 -565.000 / 745.000 Physical Exam Narrative: EXAM NARRATIVE: sitting in bed comfortably Urinary Catheter Management^: F: Cath Placed During This Visit: yes Reason for Continuing Indwelling Catheter: Perioperative Use in Selected Surgeries Urinary Catheter Date of Insertion: 11/14/20 Urinary Catheter Time of Insertion: 09:00 Data : 11/15/20 06:24 11/15/20 06:24 A&P Additional A&P Information POD # 2 T10 - pelvis Up with PT d/c drain d/c guajardo Attestations Medical Necessity Statement*: needs to work with PT and stabalize BP Procedures Arterial Line Size (Gauge): 20 Coding Level of Care Code Acute Taxi Servicer for Trang Wood
[2020-11-16] MEDS: gabapentin 300 mg Capsule PO ×3 (08:57→21:04)
[2020-11-16] MEDS: baclofen 10 mg Tablet PO ×2 (08:57→17:52)
[2020-11-16] MEDS: docusate sodium 100 mg Capsule PO ×2 (08:57→17:52)
--- NOTE | 2020-11-16 12:18 | P.PN_ITS ---
Subjective Subjective: Interval history: No new clinical events, stable overnight. pain undercontrol Medications: Reviewed: Yes Vitals/I&O/Wt Last Vital Signs Temp 99.3 F 11/16/20 15:23 Pulse 100 11/16/20 18:04 Resp 18 11/16/20 15:23 BP 130/75 11/16/20 15:23 Pulse Ox 95 11/16/20 15:23 11/16/20 11/16/20 11/16/20 06:59 14:59 22:59 Intake Total 1240.000 / 3560.000 820 / 820 1520 / 2340 Output Total 1805 / 2815 885 / 885 Balance -565.000 / 745.000 -65 / -65 1520 / 1455 Physical Exam Narrative: EXAM NARRATIVE: Alert awake, oriented x 3 NAD Clear to asculataion RRR Soft NO edema Urinary Catheter Management^: F: Cath Placed During This Visit: yes, but has since been removed by the nurse Reason for Continuing Indwelling Catheter: Other Urinary Catheter Date of Insertion: 11/14/20 Urinary Catheter Time of Insertion: 09:00 Date Urinary Catheter Removed: 11/16/20 Time Urinary Catheter Discontinued: 14:54 Data : 11/15/20 06:24 11/15/20 06:24 A&P Assessment and plan (1) Hypotension after procedure: Bp improving On IVF at 100 cc/hr Will continue to wean Limit pain meds labs in am HOld anti-hypertensive Status: Acute (2) Acute blood loss anemia: Post op Hb stable S/p 2 units Status: Acute (3) HTN (hypertension), benign: Holding home medications. Currently hypotensive as above. 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
--- NOTE | 2020-11-16 14:56 | PC.NURSE ---
Drain from mid upper back removed. Pt tolerated well. Output of 185 mL charted in I&O. 4x4 and tegaderm applied.
[2020-11-17] VITALS: BP 129/81; PULSE 97; RESP 17; TEMP 36.7; O2SAT 91
[2020-11-17 04:00] VITALS: BP 132/75; PULSE 94; RESP 23; TEMP 36.8; O2SAT 95
[2020-11-17] MEDS: HYDROcodone-acetaminophen 5-325 mg Tablet PO (04:38)
[2020-11-17] MEDS: sodium chloride 0.9% 1,000 ML 100 ML IV (04:39)
[2020-11-17 06:00] VITALS: PULSE 92
[2020-11-17 06:02] LABS: Basophils # 0.1 10^3/uL (0.0-0.1); Basophils % 0.5 %; Eosinophils # 0.1 10^3/uL (0.0-0.8); Eosinophils % 0.8 %; Hematocrit 26.7 % (37.0-47.0); Hemoglobin 8.8 g/dL (11.5-15.3); Lymphocytes # 1.9 10^3/uL (0.8-4.8); Lymphocytes % 15.9 %; Mean Corpuscular Volume 88.1 fL (81-99); Mean Platelet Volume 9.2 fL (7.4-10.4); Monocytes # 1.1 10^3/uL (0.2-0.9); Monocytes % 8.8 %; Neutrophils % 73.3 %; Nucleated Red Blood Cells % 0 %; Platelet Count 146 10^3/cmm (130-400); Red Blood Count 3.03 10^6/uL (4.1-5.3); Red Cell Distribution Width 14.4 % (12.1-15.1)
[2020-11-17 06:44] LABS: Alanine Aminotransferase 12 U/L (0-33); Albumin Level 2.7 g/dL (3.5-5.2); Alkaline Phosphatase 67 IU/L (35-105); Anion Gap 10.1 (5-19); Aspartate Amino Transferase 19 U/L (0-32); Blood Urea Nitrogen 5 mg/dL (8-23); Calcium 7.9 mg/dL (8.5-10.5); Carbon Dioxide 28 mmol/L (22-29); Chloride 104 mmol/L (98-107); Globulin 2.1 g/dL (1.3-4.6); Glomerular Filtration Rate 159.7 mL/min (90-130); Glucose 97 mg/dL (65-115); Osmolality Calculated 285 mOsm/kg (285-295); Potassium 3.1 mmol/L (3.5-5.1); Sodium 139 mmol/L (136-145); Total Bilirubin 0.5 mg/dL (0.15-1.2); Total Protein 4.8 g/dL (6.6-8.7)
[2020-11-17 07:37] VITALS: BP 118/73; PULSE 86; RESP 18; TEMP 36.5; O2SAT 99
[2020-11-17] MEDS: gabapentin 300 mg Capsule PO (09:14)
[2020-11-17] MEDS: baclofen 10 mg Tablet PO (09:14)
[2020-11-17] MEDS: docusate sodium 100 mg Capsule PO (09:14)
--- NOTE | 2020-11-17 09:33 | PC.SOCIAL ---
IMM Update Pg.2 of IMM Updated and reviewed with patient who verbalized understanding. Copy provided.
--- NOTE | 2020-11-17 10:00 | P.DS_ITS ---
Discharge Providers Date of Admission: 11/14/20 15:07 Date of Discharge: November 17, 2020 Attending Provider at Admission: Leno Rasheed DO Attending Provider at Discharge: Leno Rasheed DO Primary Care Provider: Jan Haro Diagnoses at Discharge Discharge Diagnosis (1) Hypotension after procedure: Status: Acute (2) Acute blood loss anemia: Status: Acute (3) HTN (hypertension), benign: Status: Acute Reason for Visit Reason for Visit: T10 ? Pelvis PSF with instability L2/3 PLIF and L5 Hospital Course Hospital Course Patient was admitted to the hospital on 11/14/2020. She had a T10 the pelvis posterior spine fusion. She had approximately 1100 cc of blood loss. She was given 2 units of blood. Her hemoglobin was up to 11 for after surgery. Today her hemoglobin was 8.8. However she was given a lot of fluids last night and is actually somewhat swollen. At this point plan is to discharge her. She did have a UA taken because of frequency of urination. However I think it may be likely due to the increase fluids. However we will check on this lab. She will be discharged on 11/17/2020. Physical Exam Narrative: EXAM NARRATIVE: Patient is up ambulating with a walker. Patient wound appears clean dry and intact. Urinary Catheter Management^: F: Cath Placed During This Visit: yes, but has since been removed by the nurse Reason for Continuing Indwelling Catheter: Other Urinary Catheter Date of Insertion: 11/14/20 Urinary Catheter Time of Insertion: 09:00 Date Urinary Catheter Removed: 11/16/20 Time Urinary Catheter Discontinued: 14:54 Discharge Data Data Completed and Pending: Completed Studies During Hospitalization Category Date Time Status XR lumbar spine 2 -3V* [id number] Routine Exams 11/15/20 Completed Labs from last 24 hours 11/17/20 11/17/20 05:54 05:54 WBC 12.0 H RBC 3.03 L Hgb 8.8 L Hct 26.7 L MCV 88.1 MCH 29.0 MCHC 33.0 RDW 14.4 Plt Count 146 MPV 9.2 Neut % (Auto) 73.3 Lymph % (Auto) 15.9 [place] % (Auto) 8.8 Eos % (Auto) 0.8 Baso % (Auto) 0.5 Neut # (Auto) 8.80 H Lymph # (Auto) 1.9 [place] # (Auto) 1.1 H Eos # (Auto) 0.1 Baso # (Auto) 0.1 Nucleated RBC % (a uto) 0 Nucleated RBCs # 0.0 Sodium 139 Potassium 3.1 L Chloride 104 Carbon Dioxide 28 Anion Gap 10.1 BUN 5 L Creatinine 0.4 L GFR Calculation 159.7 H Glucose 97 Calculated Osmolal ity 285 Calcium 7.9 L Total Bilirubin 0.5 AST 19 ALT 12 Alkaline Phosphata se 67 Total Protein 4.8 L Albumin 2.7 L Globulin 2.1 Vitals: Last Vital Signs Temp 97.7 F 11/17/20 07:37 Pulse 86 11/17/20 07:37 Resp 18 11/17/20 07:37 BP 118/73 11/17/20 07:37 Pulse Ox 99 11/17/20 07:37 Discharge Plan Discharge Patient Disposition: Home Condition: Stable Prescriptions: New hydrocodone-acetaminophen 5-325 mg tablet 1 - 2 tab PO .Q4-6H Qty: 40 RF: 0 Continued gabapentin 300 mg capsule 300 mg PO TID Qty: 90 RF: 0 baclofen 10 mg tablet 10 mg PO BID Qty: 60 RF: 0 losartan 25 mg tablet 25 mg PO DAILY RF: 0 hydrochlorothiazide 25 mg tablet 25 mg PO DAILY RF: 0 Discontinued ibuprofen 200 mg capsule 200 mg PO Q6H PRN (Reason: Pain) RF: 0 naproxen sodium [Aleve] 220 mg capsule 220 mg PO Q8H PRN (Reason: Pain) RF: 0 Discharge Orders: Discharge Order (Routine); Ordered 11/17/20 Ordered By: Leno Rasheed Discharge Diet: Advance as tolerated and Usual diet Discharge Activity: Limit activity as instructed Activity Restrictions/Additional Instructions: Thank you for [facility] for your care! The following is a list of instructions, from your provider, to follow upon your discharge to ensure you have the optimal recovery from your recent injury orsurgery. Follow-up care is a stephens part of your treatment and safety. Be sure to make and go to all appointments, and call your doctor if you are having problems. If you do not already have a follow-up appointment made, call Dr. Rasheed office in the next 1-3 days to make follow up appointment for 2 weeks at [phone]. It is also a good idea to know your test results and keep a list of the medicines you take. Medications will be prescribed for you at your provider's discretion. These medications are to be used as instructed; if they are taken more often that prescribed they will not be refilled early and in most cases will not be refilled at all. > When a refill is needed,you should contact donn giraldo 2-3 business days before your prescription runs out. Medications will NOT be refilled by montessori toddler teacher providers after hours! > Many pain medications contain Tylenol (Acetaminophen). Do not consume more than 4,000 mg of Tylenol per day in total with any combination ofmedications. > Pain medications can cause constipation. Please use an over the counter stool softener as directed, while taking pain medications. Consulty our local pharmacist with questions or recommendations on stool softeners. If constipation persists, contact our office or your primary care provider. > While under our care,you are not to receive pain medications or other controlled substances from any other provider unless our office is notified and approves. Any attempts to do so will result in refusal to prescribe any further pain medications and possible dismissal from our practice. ? Your wound and/or dressing should remain clean and dry for 2 days after surgery. On postoperative day 2 (48 hours after your surgery) the dressing (if present) should be removed and it is okay to shower and get the incision wet. Pad dry afterwards. No further dressing should be required from that point on. Do not put any creams or ointments on theincision > It is normal for there to be a small amount of discharge (bloody or blood tinged) present from a surgical wound for the first 1-3days. > The wound should be examined twice a day for signs of infection. Mild redness or bruising is to be expected but indications that an infection maybe starting would include; An increase in redness, swelling, or discharge, a foul odor present around the incision, and/or a fever greater than 101 ?F ? Showering is permitted, however we ask that you do not take a bath, sit in a whirlpool / Jacuzzi, or go swimming for 1 month. For only the first 2 days after surgery, lt wilt be necessary for you to cover your wound/dressing with plastic and tape to keep it dry. ? Walking is essential for the healing process after surgery. We would like you to slowly advance your walking. This should be done on relatively flat clear ground (inside or out) or can be done on a treadmill. Remember this goal does not have to happen all at once, slowly increase your distance and duration. This can be broken into more more than one walk per day as tolerated. Patients who walk as directed after surgery rarely require Physical Therapy. In the unlikely event this issue arises your provider will dir ect hospital staff to make the appropriate arrangements. ? No lifting over 5 pounds {a gallon of milk) or bending/twisting until further notice. Each of these activities places an unnecessary amount of stress onto the body and can impede the delicate healing process. > Instead of bending at the waist, keep your back straight and bend at the knees. > Instead of twisting your torso, keep your back straight and turn your entire body with your feet. ? You may sleep in any position which makes you comfortable. Many patients find comfort sleeping in a reclining chair. It is not abnormal to have difficulty sleeping for the first several weeks following your surgery. We recommend trying Benadry! or Tylenol PM as directed to help with your sleeping difficulties. Both medications are over the counter and available withoutprescription. ? NO SMOKING!!! Smoking dramatically increases the probability of developing postoperative wound infections. ? Common complaints after lumbar and/or thoracic spine surgery include, but are not limited to: numbness and/or tingling in the legs, pain around the incision and surrounding tissues, muscle spasms, or stiffness of the middle to low back. Contact our office if these symptoms persist or if an acute change occurs. ? No driving for the first 3-5days, and not while taking narcotics until seen at your follow-up appointment and cleared. There are no restrictions for riding on short trips, however if you take a longer trip, arrangements should be made to make regular stops to get out of the vehicle and stretch . ? Swelling is an unfortunate event that will take place with any surgery and is the primary source of your postoperative discomfort. While walking and regular approved activities helps control inflammation, there are additional steps you can take to minimizeswelling. > Place ice over the surgical site and surrounding tissue for twenty minutes, followed by applying a low/medium heat (heating pad) for an additional twenty minutes every 1-2 hours as needed for painrelief. > You may use of over the counter anti-inflammatory medications (Ibuprofen, Motrin, Aleve, Advil, etc) as directed on the package label. These types of medicines wm significantly reduce the amount of discomfort you experience after surgery from swelling. It should be noted that if you have and allergy to any of these medications, or a history of ulcers or kidney disease you should consult you primary care provider prior to starting these medications. Discharge Attestations Time Spent in Discharge Care*: less than 30 min Quality Metrics Clinical Quality Measures During this hospital stay, did patient experience: None Coding Level of Care Code Acute Phlebotomy Coordinator for Chg Fwd Diagnoses Hypotension after procedure I95.81 Acute blood loss anemia D62 HTN (hypertension), benign I10
--- NOTE | 2020-11-17 10:05 | PM.PN ---
Subjective Subjective: Interval history: Doing well, no new clinical events overnight Medications: Reviewed: Yes Vitals/I&O/Wt Last Vital Signs Temp 97.7 F 11/17/20 07:37 Pulse 86 11/17/20 07:37 Resp 18 11/17/20 07:37 BP 118/73 11/17/20 07:37 Pulse Ox 99 11/17/20 07:37 11/16/20 11/17/20 11/17/20 22:59 06:59 14:59 Intake Total 1520 / 2340 1406.667 / 3746.667 Output Total 300 / 1185 1340 / 2525 Balance 1220 / 1155 66.667 / 1221.667 Physical Exam Narrative: EXAM NARRATIVE: Alert awake, oriented x 3 NAD Clear to asculataion RRR Soft NO edema Urinary Catheter Management^: F: Cath Placed During This Visit: yes, but has since been removed by the nurse Reason for Continuing Indwelling Catheter: Other Urinary Catheter Date of Insertion: 11/14/20 Urinary Catheter Time of Insertion: 09:00 Date Urinary Catheter Removed: 11/16/20 Time Urinary Catheter Discontinued: 14:54 Data : 11/17/20 05:54 11/17/20 05:54 A&P Assessment and plan (1) Hypotension after procedure: Bp improving D/C IVF Limit pain meds labs in am Status: Resolved (2) Acute blood loss anemia: Post op Hb stable S/p 2 units Outpatient h/h Status: Resolved (3) HTN (hypertension), benign: Bp improved Status: Acute Attestations Medical Necessity Statement*: Patient is medcally stable for discharge. Time Spent in Patient Care: Greater than 35 minutes (>than 50% of time spent in counselling and/or direct pt care on unit). Procedures Arterial Line Size (Gauge): 20 Coding Level of Care Code Acute Customer Service Clerk for Chg Fwd Diagnoses Hypotension after procedure I95.81 Acute blood loss anemia D62 HTN (hypertension), benign I10
[2020-11-17 11:50] VITALS: BP 118/73; PULSE 86; RESP 18; TEMP 36.5; O2SAT 99
--- NOTE | 2020-11-17 11:51 | PC.NURSE ---
pt iv taken out and intact. pt discharge instructions explained and questions answered.
[2020-11-17 11:52] VITALS: BP 133/70; PULSE 97; RESP 18; TEMP 36.8; O2SAT 97
[2020-11-17 12:19] LABS: Add Urine Microscopic? NO
[2020-11-17 12:45] LABS: Bilirubin Urine Neg (Negative); Blood Urine Neg (Negative); Glucose Urine UA Norm (Normal); Ketones Urine Negative (Negative); Leukocyte Esterase Urine Negative (Negative); Nitrate Urine Negative (Negative); Protein Urine Neg (Negative); Specific Gravity, Urine 1.015 (1.005-1.030); Urine Appearance Clear (CLEAR); Urine Color Straw (Yellow); Urobilinogen Urine Norm (Negative); pH Urine 6 (5-7)
== END 2020-11-17 12:43 | disposition home or self-care (01) | DRG 460 ==
LOC: MEDSURG 15:08
PROVIDERS: Anesthesiology; Hospitalist; Admitting Provider Orthopaedic Surgery; PCP Family Medicine; Visit Provider Orthopaedic Surgery
PROC: 0SG30AJ Fusion of Lumbosacral Joint with Interbody Fusion Device, Posterior Approach, Anterior Column, Open Approach (ICD-10-PCS; principal; 2020-11-14 07:30)
DX: M47.816 Spondylosis without myelopathy or radiculopathy, lumbar region (principal); D62 Acute posthemorrhagic anemia; Z79.891 Long term (current) use of opiate analgesic; M53.2X6 Spinal instabilities, lumbar region; I95.81 Postprocedural hypotension; I10 Essential (primary) hypertension
CPT/HCPCS: 36415; 36430; 51702; 72100; 76000; 80048; 80051; 80053; 81003; 82330; 82805; 85007; 85014; 85018; 85025; 85027; 86850; 86900; 86920; 97116; 97162; 97530; C1713; J0690; J1100; J1200; J1644; J1885; J2370; J2405; J2704; J2710; J3010; J3370; J3490; J7030; P9016; P9041

== ENCOUNTER → 2020-11-29 08:38 | Outpatient (BNVA) | payer MEDICARE, SELFPAY | PROVIDERS: PCP Family Medicine; Visit Provider Orthopaedic Surgery | DX: Z48.89 Encounter for other specified surgical aftercare (principal); M54.16 Radiculopathy, lumbar region | CPT/HCPCS: 72100 ==

== ENCOUNTER → 2020-12-27 10:18 | Outpatient (BNVA) | payer MEDICARE, SELFPAY | PROVIDERS: PCP Family Medicine; Visit Provider Orthopaedic Surgery | DX: M54.16 Radiculopathy, lumbar region (principal); Z48.89 Encounter for other specified surgical aftercare; Z98.1 Arthrodesis status | CPT/HCPCS: 72100 ==

== ENCOUNTER → 2021-02-12 08:49 | Outpatient (BNVA) | payer MEDICARE, SELFPAY | PROVIDERS: PCP Family Medicine; Visit Provider Orthopaedic Surgery | DX: Z48.89 Encounter for other specified surgical aftercare (principal); Z98.1 Arthrodesis status | CPT/HCPCS: 72100 ==

== ENCOUNTER 2022-01-21 11:18 | Outpatient (CLI) | payer MEDICARE, SELFPAY ==
--- NOTE | 2022-01-21 11:31 | MM_ITS ---
WS: [id number] BILATERAL SCREENING TOMOSYNTHESIS DIGITAL MAMMOGRAM WITH CAD HISTORY: SCREENING COMPARISON: 09/20/2018 Bilateral CC and MLO views submitted. Computer aided detection analyzed. Breast composition: There are scattered areas of fibroglandular density. No suspicious masses, microc alcifications or architectural distortion. 10 mm rim calcified cyst in the anterior RIGHT breast near 12:00. Additional scattered calcifications in each breast. MM/[place] [id number] IMPRESSION: BI-RADS: 2-Benign FOLLOW UP: 1 Year Follow-up
== END 2022-01-21 11:19 | disposition home or self-care (01) ==
LOC: RAD 11:25
PROVIDERS: PCP Family Medicine; Visit Provider Family Medicine
DX: Z12.31 Encounter for screening mammogram for malignant neoplasm of breast (principal)
CPT/HCPCS: 77063; 77067

== ENCOUNTER 2023-01-27 09:41 | Outpatient (CLI) | payer MEDICARE, SELFPAY ==
--- NOTE | 2023-01-27 09:58 | MM_ITS ---
WS: [id number] BILATERAL SCREENING DIGITAL TOMOSYNTHESIS MAMMOGRAM WITH CAD HISTORY: SCREENING COMPARISON: 01/21/2022, 09/20/2018 Bilateral CC and MLO views with tomosynthesis and synthetic mammography submitted. Computer aided det ection analyzed. Breast composition: There are scattered areas of fibroglandular density. No suspicious masses, microc alcifications or architectural distortion. Benign calcifications in each breast. MM/[place] [id number] IMPRESSION: BI-RADS: 2-Benign FOLLOW UP: 1 Year Follow-up
== END 2023-01-27 09:42 | disposition home or self-care (01) ==
PROVIDERS: PCP Family Medicine; Visit Provider Family Medicine
DX: Z12.31 Encounter for screening mammogram for malignant neoplasm of breast (principal)
CPT/HCPCS: 77063; 77067

== ENCOUNTER → 2023-04-08 10:11 | Outpatient (BNVA) | payer MEDICARE, SELFPAY | PROVIDERS: PCP Family Medicine; Visit Provider Nurse Practitioner Family | DX: L85.3 Xerosis cutis (principal) | CPT/HCPCS: 17000; 17003; 99213 ==

== ENCOUNTER → 2023-10-08 14:10 | Outpatient (BNVA) | payer MEDICARE, SELFPAY | PROVIDERS: PCP Family Medicine; Visit Provider Nurse Practitioner Family | DX: Z86.006 Personal history of melanoma in-situ (principal); D18.01 Hemangioma of skin and subcutaneous tissue; L81.4 Other melanin hyperpigmentation; D22.5 Melanocytic nevi of trunk; L85.3 Xerosis cutis; L57.8 Other skin changes due to chronic exposure to nonionizing radiation; L82.1 Other seborrheic keratosis; L57.0 Actinic keratosis; D48.5 Neoplasm of uncertain behavior of skin; L72.0 Epidermal cyst | CPT/HCPCS: 11102; 17000; 99213 ==

== ENCOUNTER → 2023-10-27 08:11 | Outpatient (BNVA) | payer MEDICARE, SELFPAY | PROVIDERS: PCP Family Medicine; Visit Provider Dermatology | DX: C44.311 Basal cell carcinoma of skin of nose (principal) | CPT/HCPCS: 13152; 17311 ==

== ENCOUNTER 2024-01-29 07:43 | Outpatient (CLI) | payer MEDICARE, SELFPAY ==
--- NOTE | 2024-01-29 07:49 | MM_ITS ---
WS: [id number] BILATERAL SCREENING DIGITAL TOMOSYNTHESIS MAMMOGRAM WITH CAD HISTORY: SCREENING COMPARISON: 01/27/2023, 01/21/2022 and 09/20/2018 Bilateral CC and MLO views with tomosynthesis and synthetic mammography submitted. Computer aided det ection analyzed. Breast composition: There are scattered areas of fibroglandular density. No suspicious masses, microc alcifications or architectural distortion. Benign calcifications in each breast. Stable oil cyst RIGH T breast. MM/[place] [id number] IMPRESSION: BI-RADS: 2-Benign FOLLOW UP: 1 Year Follow-up
== END 2024-01-29 07:44 | disposition home or self-care (01) ==
LOC: RAD 07:44
PROVIDERS: PCP Family Medicine; Visit Provider Family Medicine
DX: Z12.31 Encounter for screening mammogram for malignant neoplasm of breast (principal)
CPT/HCPCS: 77063; 77067

== ENCOUNTER → 2024-02-11 14:37 | Outpatient (BNVA) | payer MEDICARE, SELFPAY | PROVIDERS: PCP Family Medicine; Visit Provider Nurse Practitioner Family | DX: L81.4 Other melanin hyperpigmentation (principal); D22.4 Melanocytic nevi of scalp and neck; L85.3 Xerosis cutis; L57.8 Other skin changes due to chronic exposure to nonionizing radiation; L82.1 Other seborrheic keratosis; L57.0 Actinic keratosis; Z86.006 Personal history of melanoma in-situ | CPT/HCPCS: 17000; 99214 ==

== ENCOUNTER → 2024-06-22 09:45 | Outpatient (BNVA) | payer MEDICARE, SELFPAY | PROVIDERS: PCP Family Medicine; Visit Provider Nurse Practitioner Family | DX: L57.0 Actinic keratosis (principal); L81.4 Other melanin hyperpigmentation; D22.4 Melanocytic nevi of scalp and neck; L85.3 Xerosis cutis; L57.8 Other skin changes due to chronic exposure to nonionizing radiation; L82.1 Other seborrheic keratosis; L82.0 Inflamed seborrheic keratosis; D36.12 Benign neoplasm of peripheral nerves and autonomic nervous system, upper limb, including shoulder; Z86.006 Personal history of melanoma in-situ; Z85.828 Personal history of other malignant neoplasm of skin | CPT/HCPCS: 17000; 99213 ==

== ENCOUNTER → 2024-12-15 13:11 | Outpatient (BNVA) | payer MEDICARE, SELFPAY | PROVIDERS: PCP Family Medicine; Visit Provider Nurse Practitioner Family | DX: L82.1 Other seborrheic keratosis (principal); D36.12 Benign neoplasm of peripheral nerves and autonomic nervous system, upper limb, including shoulder; L57.8 Other skin changes due to chronic exposure to nonionizing radiation; X32.XXXA Exposure to sunlight, initial encounter; L57.0 Actinic keratosis | CPT/HCPCS: 17000; 99213 ==

== ENCOUNTER 2025-01-30 08:27 | Outpatient (CLI) | payer MEDICARE, SELFPAY ==
--- NOTE | 2025-01-30 08:33 | MM_ITS ---
WS: [id number] BILATERAL SCREENING DIGITAL TOMOSYNTHESIS MAMMOGRAM WITH CAD HISTORY: SCREENING COMPARISON: 01/29/2024, 01/27/2023 Bilateral CC and MLO views with tomosynthesis and synthetic mammography submitted. Computer aided detection analyzed. Breast composition: There are scattered areas of fibroglandular density. No suspicious masses, microcalcifications or architectural distortion. Stable oil cyst measures 8 x 4 x 7 mm 12:00 anterior RIGHT breast. There are a few additional scattered calcifications within each breast. MM/MM scr tomosynthesis [id number] IMPRESSION: BI-RADS: 2 - Benign. FOLLOW UP: 1 Year Follow-up
== END 2025-01-30 08:28 | disposition home or self-care (01) ==
LOC: RAD 08:28
PROVIDERS: PCP Family Medicine; Visit Provider Nurse Practitioner Family
DX: Z12.31 Encounter for screening mammogram for malignant neoplasm of breast (principal); R92.323 Mammographic fibroglandular density, bilateral breasts; N60.01 Solitary cyst of right breast; R92.1 Mammographic calcification found on diagnostic imaging of breast
CPT/HCPCS: 77063; 77067

== ENCOUNTER → 2025-06-06 10:27 | Outpatient (BNVA) | payer MEDICARE, SELFPAY | PROVIDERS: PCP Family Medicine; Visit Provider Nurse Practitioner Family | DX: L29.89 Other pruritus (principal); L82.1 Other seborrheic keratosis; L98.8 Other specified disorders of the skin and subcutaneous tissue; D36.12 Benign neoplasm of peripheral nerves and autonomic nervous system, upper limb, including shoulder; L57.8 Other skin changes due to chronic exposure to nonionizing radiation; X32.XXXA Exposure to sunlight, initial encounter; L57.0 Actinic keratosis; L81.4 Other melanin hyperpigmentation; Z86.006 Personal history of melanoma in-situ; Z08 Encounter for follow-up examination after completed treatment for malignant neoplasm; Z85.828 Personal history of other malignant neoplasm of skin; L82.0 Inflamed seborrheic keratosis | CPT/HCPCS: 17110; 99214 ==